=== PATIENT | female | born 1935 | race Caucasian/White ===

== ENCOUNTER → 2017-03-05 14:02 | Outpatient (CLI) | payer MEDICARE, OTHER ==
[2014-06-27 14:24] VITALS: BMI 25.4
[~2017-03-05 14:02] MED LIST: AMOXICILLIN875 MG PO; AUGMENTIN 875-11 TAB PO; COZAAR50 MG PO; HYDROCODON-ACE1 EAC7 PO; MOBIC7.5 MG PO; SYNTHROID75 MCG PO; ULTRAM50 MG PO
== END | disposition home or self-care (01) ==
LOC: D.US 02-26 13:00
DX: I65.23 Occlusion and stenosis of bilateral carotid arteries (principal)

== ENCOUNTER 2017-12-16 11:13 | Outpatient (CLI) | payer MEDICARE, OTHER ==
[~2017-12-16] VITALS: Ht 162.6 cm; Wt 70.0 kg
--- NOTE | ~2017-12-16 | HEMODYNAMI ---
PATIENT:MARY MONAHAN MEDICAL RECORD: [id number] : 37 LOCATION:[facility] ADMISSION DATE: 12/16/17 Generatedon:12/16/201713:31 Patient name: MARY MONAHAN Patient #: [id number] SSN: : [birth year] Date of study: 12/16/2017 Page: Of Hemodynamic Procedure Report Patient Data Patient Demographics Procedure consent was obtained First Name: MARY Gender: Female Last Name: TANIYA : 1935 Middle Initial: S Age: 82 year(s) Patient #: [id number] Race: Unknown Additional ID: [id number] Contact details [address]: [address] [place] [address] ROAD State: [facility] Zip code: [address] Past Medical History Allergies Allergen Reaction Date Comments Reported Other allergy 12/16/2017 MORPHINE, TETRACYCLINE Admission Admission Data Admission Date: 12/16/2017 Admission Time: 11:13 Height (in.): 64 Height (cm.): 162.56 Lab Results Lab Result Date: 12/16/2017 Lab Result Time: 0:00 Biochemistry Name Units Result Min Max BUN mg/dl 22 --(----)-* 7 18 Creatinine mg/dl 1 --(--*-)-- 0.6 1.3 CBC Name Units Result Min Max Hemoglobin g/dl 12 *-(----)-- 13.5 17.5 Procedure Procedure Types Cath Procedure Diagnostic Procedure C LH w/Coronaries Sedation Charges Moderate Sedation up to 15 minutes PCI Procedure Coronary Stent Coronary Stent Initial Procedure Description Procedure Date Procedure Date: 12/16/2017 Procedure Start Time: 13:05 Procedure End Time: 13:27 Procedure Staff Name Function Dalton Jesus MD Performing Physician Tricia Bates RT Monitor Lanre Haile RT Scrub Tahira White RN Nurse Evette Soliman RN Nurse Procedure Data Cath Procedure Fluoroscopy Diagnostic fluoroscopy Total fluoroscopy Time: 4.7 time: 4.7 min min Diagnostic fluoroscopy Total fluoroscopy dose: 623 dose: 623 mGy mGy Contrast Material Contrast Material Type Amount (ml) Isovue 300 122 Entry Location Entry Primary Successful Side Size Upsize Upsize Entry Closure Romero ccessful Closure Location (Fr) 1 (Fr) 2 (Fr) Remarks Device Remarks Radial Right 6 Fr Mechanical artery Short Compression Estimated blood loss: 10 ml Diagnostic catheters Device Type Used For End Catheter Placement DIAGNOSTIC [place] 110cm 5 Procedure Fr catheter ([id number]) Procedure Complications No complications Procedure Medications Medication Administration Route Dosage 0.9% NaCl I.V. 100 ml/hr Oxygen etCO2 Nasal cannula 2 l/min Lidocaine 2% added to field 20 Heparin Flush Bag added to field 2 bags (1000units/500ml NS) Versed I.V. 1 mg Fentanyl I.V. 50 mcg Heparin Bolus I.V. 7000 units Plavix P.O. 600 mg Fentanyl I.V. 50 mcg Hemodynamics Rest HGB: 12 (g/dl) Heart Rate: 60 (bpm) Pressure Samples Time Site Value (mmHg) Purpose Heart Use Rate(bpm) 13:09 LV 144/-3,13 Snapshot 58 Gradients Valve Time Site Site Mean SEP/DFP Peak To Heart Use 1 2 (mmHg) (sec/min) Peak Rate (mmHg) (bpm) Aortic 13:09 LV AO 63 Snapshots Pre Cath Intra NCS Post Cath Vital Signs Time Heart Resp SPO2 etCO2 NIBP (mmHg) Rhythm Pain Sedation Rate (ipm) (%) (mmHg) Status Level (bpm) 12:57:10 64 12 100 30.5 208/82(157) NSR 0 (11) 10(A) , No pain 13:01:45 58 16 97 35 175/68(136) NSR 0 (11) 10(A) , No pain 13:06:11 55 12 97 36 150/63(122) NSR 0 (11) 10(A) , No pain 13:10:29 56 14 97 30 138/63(111) NSR 0 (11) 10(A) , No pain 13:14:49 60 17 98 30 126/57(98) NSR 0 (11) 10(A) , No pain 13:19:09 58 14 97 32 142/57(111) NSR 0 (11) 9(A) , No pain 13:23:33 53 19 97 28.3 131/48(102) NSR 0 (11) 10(A) , No pain 13:28:47 60 17 98 26 152/73(123) NSR 0 (11) 10(A) , No pain Medications Time Medication Route Dose Verified Delivered Reason Notes Effectiveness by by 12:57:31 0.9% NaCl I.V. 100 Dalton Evette used for ml/hr Edin Soliman flipping machine operator 12:57:39 Oxygen etCO2 2 Dalton Evette used for Nasal l/min Edin Soliman procedure cannula RN 12:57:46 Lidocaine 2% added 20ml Dalton Dalton for local to vial Edin Jesus MD anesthetic field 12:57:54 Heparin Flush added 2 Dalton Dalton used for Bag to bags Edin Jesus MD procedure (1000units/500ml field NS) 13:06:57 Versed I.V. 1 mg Dalton Evette for sedation Edin Soliman RN 13:07:05 Fentanyl I.V. 50 Dalton Evette for sedation mcg Edin Soliman RN 13:19:20 Fentanyl I.V. 50 Dalton Evette for sedation mcg Edin Soliman RN 13:19:24 Heparin Bolus I.V. 7000 Dalton Evette for units Edin Soliman anticoagulation RN 13:25:41 Plavix P.O. 600 Dalton Evette for mg Edin Soliman antiplatelet RN therapy Procedure Log Time Note 12:35:32 Lanre Haile RT(R) sent for patient. Start room use. 12:46:00 Time tracking: Regular hours (M-F 7:00 - 5:00) 12:46:04 Plan of Care:Hemodynamics will remain stable., Cardiac rhythm will remain stable., Comfort level will be maintained., Respiratory function will remain adequate., Patient/ family verbilizes understanding of procedure., Procedure tolerated without complication., Recovers from procedure without complications.. 12:46:12 H&P Date Dictated: 12/10/2017 Within 30 days and on chart., H&P Addendum completed by physician on day of procedure. (MUST COMPLETE FOR ALL OUTPATIENTS). 12:46:32 Patient allergic to Other allergyMORPHINE, TETRACYCLINE 12:46:39 Patient Height : 64 inches 12:48:43 Patient received from Pre/Post Procedure Room to CCL 1 Alert and oriented. Tansferred to table in Supine position. 12:48:45 Warm blankets applied, and coy hugger turned on for patient comfort. 12:48:45 Correct patient and procedure confirmed by team. 12:48:47 Signed procedure consent form obtained from patient. 12:48:47 ECG and BP/O2 sat monitors applied to patient. 12:48:49 Diagnostic Cath status Elective 12:53:57 Vital chart was started 12:57:31 0.9% NaCl 100 ml/hr I.V. was administered by Evette Soliman RN; used for procedure; 12:57:39 Oxygen 2 l/min etCO2 Nasal cannula was administered by Evette Soliman RN; used for procedure; 12:57:46 Lidocaine 2% 20ml vial added to field was administered by Dalton Jesus MD; for local anesthetic; 12:57:54 Heparin Flush Bag (1000units/500ml NS) 2 bags added to field was administered by Dalton Jesus MD; used for procedure; 13:00:13 Baseline sample Acquired. 13:00:19 Rhythm: sinus bradycardia 13:00:20 Full Disclosure recording started 13:00:20 Pre-procedure instructions explained to patient. 13:00:21 Pre-op teaching completed and patient verbalized understanding. 13:00:22 Family in patients room. 13:00:24 Patient NPO since Midnight. 13:00:25 Is the patient allergic to Iodine/contrast media? No. 13:00:26 Is patient on blood thinner?No 13:00:28 Patient diabetic? No. 13:00:32 Previous problem with sedation/anesthesia? No ? 13:00:33 Snore? No 13:00:34 Sleep apnea? No 13:00:36 Deviated septum? No 13:00:37 Opens mouth fully? Yes 13:00:38 Sticks out tongue? Yes 13:00:39 Airway obstruction? No ? 13:00:43 Dentures? Yes PARTIAL IN 13:00:47 Modified Keshawn's test Ulnar < 7 seconds 13:00:49 Patient pain scale 0/10 ?. 13:00:54 IV patent on arrival in left forearm with 0.9% NaCl at [facility] 13:01:13 Lab Result : Creatinine 1 mg/dl 13::13 Lab Result : BUN 22 mg/dl 13::13 Lab Result : Hemoglobin 12 g/dl 13:01:16 Lab results completed and on chart. 13:01:19 Right Radial & Right Groin area was prepped with chlora-prep and draped in sterile fashion 13:01:20 Alarms reviewed by R. N. 13:01:20 Sharps counted by scrub and verified by R.N. 13:01:21 --------ALL STOP TIME OUT------ 13::22 Final Timeout: patient, procedure, and site verified with staff and physician. All members of the team are in agreement. 13:01:23 Right Radial & Right Groin site verified by team. 13:01:26 Physical assessment completed. ASA score P 2 - A patient with mild systemic disease as per Dalton Jesus MD. 13:01:28 Sedation plan: IV Moderate Sedation Medication:Versed, Fentanyl 13:02:14 Use device set Radial Dx or PCI 13:02:18 ACIST Syringe (95535) opened to sterile field. 13:02:19 Bag Decanter (2002S) opened to sterile field. 13:02:19 ACIST Manifold (44167) opened to sterile field. 13:02:20 ACIST Hand Control (72551) opened to sterile field. 13:02:21 Tegaderm 4 x 4 (1626W) opened to sterile field. 13:02:22 Medline Cath Pack ([id number]) opened to sterile field. 13:02:22 DIAGNOSTIC WIRE .035 260cm J wire (764396) opened to sterile field. 13:02:23 MBrace Wrist Support ([id number]) opened to sterile field. 13:02:23 SHEATH 6Fr Prelude Radial ([id number]) opened to sterile field. 13:04:03 Zero performed for pressure channel P1 13:04:32 Procedure started. 13:05:19 Local anesthetic to right radial artery with Lidocaine 2% by Dalton Jesus MD.INITIAL ACCESS ONLY 13:06:57 Versed 1 mg I.V. was administered by Evette Soliman RN; for sedation; 13:07:03 A 6 Fr Short sheath was inserted into the Right Radial artery 13:07:05 Fentanyl 50 mcg I.V. was administered by Evette Soliman RN; for sedation; 13:07:40 A DIAGNOSTIC [place] 110cm 5 Fr catheter (835199) was advanced over the wire and used for Procedure. 13:08:44 LV gram done using FIGUEROA 13:08:50 Injector settings: Ml/sec: 7, Volume: 15, 13:09:09 LV hemodynamics recorded. 13:09:19 EF : 60 % 13:11:49 LCA angiography performed. 13:12:29 RCA angiography performed. 13:15:00 Catheter exchanged over wire. 13:15:37 BMW 300cm [place] 2 J wire ([id number]) opened to sterile field. 13:15:38 INFLATOR Merit BasixCompak (KX5941) opened to sterile field. 13:15:38 TUBING High Pressure Extension Tubing (Lithera) ([id number]) opened to sterile field. 13:16:18 GUIDE 6FR AR 1.0 catheter ([id number]) opened to sterile field. 13:16:58 6 Fr AR 1 guide catheter was inserted over the wire 13:19:00 BMW 300 wire advanced. 13:19:20 Fentanyl 50 mcg I.V. was administered by Evette Soliman RN; for sedation; 13:19:24 Heparin Bolus 7000 units I.V. was administered by Evette Soliman RN; for anticoagulation; 13:20:35 Wire advanced across lesion. 13:22:57 Place stent Inflation Number: 1 A INTEGRITY OTW 3.5 X 26 stent ([id number]) was prepped and advanced across the Mid RCA. The stent was deployed at 16 JAQUELINE for 0:10 (min:sec). 13:24:08 Stent catheter was removed intact over wire. 13:24:09 Wire removed. 13:24:10 Guide catheter removed. 13:24:19 TR BAND Standard ([id number]) opened to sterile field. 13:25:05 Procedure ended.(Physican Out) 13:25:12 Sheath removed intact; hemostasis achieved with Mechanical Compression to the Right Radial artery. 13:25:41 Plavix 600 mg P.O. was administered by Evette Soliman RN; for antiplatelet therapy; 13:26:10 Fluoroscopy time 04.70 minutes. 13:26:16 Fluoroscopy dose: 623 mGy 13:26:16 Flurop Dose total: 623 13:26:19 Contrast amount:Isovue 300 122ml. 13:26:21 Sharps counted by scrub and verified by R.N. 13:26:23 TR band inflated with 14cc of air. 13:26:25 Post-procedure physical assessment completed. ASA score P 2 - A patient with mild systemic disease as per Dalton Jesus MD. 13:26:28 Post procedure rhythm: unchanged. 13:26:31 Estimated blood loss: 10 ml 13:26:32 Post procedure instruction explained to patient.Patient verbalizes understanding. 13:26:32 Patient needs reinforcement of post procedure teaching. 13:26:54 Procedure type changed to Cath procedure, Diagnostic procedure, LHC, LHC w/Coronaries, Sedation Charges, Moderate Sedation up to 15 minutes, PCI procedure, Coronary Stent, Coronary Stent Initial 13:27:45 Procedure and supply charges have been captured, reviewed, submitted and are correct. 13:27:47 Procedure Complication : No complications 13:27:49 Vital chart was stopped 13:27:49 See physician's report for complete and final results. 13:27:51 Report given to Pre/Post Procedure Room. 13:27:56 Patient transfered to Pre/Post Procedure Room with Bed. 13:27:58 Procedure ended. 13:27:58 Full Disclosure recording stopped 13:28:01 End room use (Document Last) Intervention Summary Intervention Notes Time ActionType Lesion and Equipment Action# Pressure Duration Attributes Used 13:22:57 Place stent Mid RCA INTEGRITY 1 16 00:10 OTW 3.5 X 26 stent ([id number]) Device Usage Item Name Manufacture Quantity Catalog Number Hospital Part Current M inimal Lot# / Charge Number Stock Stock Serial# Code ACIST Syringe Acist 1 79549 678961 767078 197500 2 0 (47274) [employer] Bag Decanter Microtek 1 2001S 776228 73297 597489 5 () Medical Inc. ACIST Manifold Acist 1 99502 602027 047549 380905 5 (52950) [employer] Inc ACIST Hand Acist 1 07551 036958 212243 297774 5 Control (35432) [employer] Inc Tegaderm 4 x 4 3M 1 1626W 081159 724658 163763 5 (1626W) Medline Cath Cardinal 1 [id number] 247317 83319 678202 5 [facility] ([id number]) DIAGNOSTIC WIRE [facility] 1 158402 342077 637892 846957 3 0 .035 260cm J wire (317032) MBrace Wrist Advanced 1 140-0250-00 189091 93048 529985 5 Support Vascular ([id number]) Dynamics SHEATH 6Fr Merit 1 [id number] 163229 881088 309671 5 Prelude Radial Medical ([id number]) DIAGNOSTIC Terumo 1 40-0943 733787 132322 808389 5 [place] 110cm 5 Fr catheter (722672) BMW 300cm [place] 1 [id number] 430887 532729 870282 5 [place] 2 J Vascular wire ([id number]) INFLATOR Merit Merit 1 UP9304 423371 414434 240393 1 5 BFKW Medical (OZ1229) TUBING High Merit 1 [id number] 038574 05822 990804 1 0 Pressure Medical Extension Tubing (Jesus) ([id number]) GUIDE 6FR AR Medtronic 1 [id number] 898197 96034 564368 1 1.0 catheter ([id number]) INTEGRITY OTW Medtronic 1 [id number] 552133 675980 7 [id number] 3.5 X 26 stent ([id number]) TR BAND Terumo 1 [id number] 502795 435496 272271 4 0 Standard ([id number]) Signature Audit [place] Stage Time Signature Unsigned Intra-Procedure 12/16/2017 Tricia Bates 1:31:40 PM RT(R) Signatures Monitor : Tricia Bates Signature : RT Date : Time : [facility] [address] [address]
[2017-12-16] MEDS ORDERED: HYDROCHLOROTH12.5 M1 PO (12:07)
[2017-12-16 12:15] VITALS: BP 189/76; Ht 162.6 cm; Wt 70.0 kg
[2017-12-16 12:34] LABS: BASOPHILS 0.6 % (0-2); HEMATOCRIT 35.4 % (36.0-48.0); IMMATURE GRANULOCYTES 0.2 % (0-5); LYMPHOCYTES 37.6 % (15-50); MCH 30.1 pg (26.0-34.0); MCHC 33.9 g/dL (31.0-37.0); MCV 88.7 fL (80.0-100.0); MEAN PLATELET VOLUME 10.5 fL (7.4-10.4); MONOCYTES 12.4 % (2-11); NEUTROPHILS 45.2 % (40-80); RBC 3.99 10x6/uL (4.00-5.40); RDW 13.1 % (11.5-14.5)
[2017-12-16 12:41] LABS: PLATELET COUNT 182 10x3/uL (130-400)
[2017-12-16 12:42] LABS: ANION GAP 14.6 mmol/L (8-16); CALCIUM 9.2 mg/dL (8.5-10.1); CARBON DIOXIDE 23.6 mmol/L (21.0-32.0)
[2017-12-16 12:43] LABS: POTASSIUM - SERUM 4.2 mmol/L (3.5-5.1)
[2017-12-16] MEDS ORDERED: PLAVIX75 MG PO (14:05)
== END 2017-12-16 17:10 | disposition home or self-care (01) ==
LOC: D.CATH 11:13
PROVIDERS: Internal Medicine Cardiovascular Disease
DX: I25.119 Atherosclerotic heart disease of native coronary artery with unspecified angina pectoris (principal); Z01.812 Encounter for preprocedural laboratory examination

== ENCOUNTER → 2018-02-25 12:54 | Outpatient (CLI) | payer MEDICARE, OTHER ==
[2017-12-16 12:15] VITALS: BMI 26.5
[~2018-02-25 12:54] MED LIST changes: +HYDROCHLOROTH12.5 M1 PO; +PLAVIX75 MG PO
== END | disposition home or self-care (01) ==
LOC: D.US 12:54
DX: I65.23 Occlusion and stenosis of bilateral carotid arteries (principal)

== ENCOUNTER → 2018-03-31 14:03 | Outpatient (CLI) | payer MEDICARE, OTHER ==
[2017-12-16 12:15] VITALS: BMI 26.5
== END | disposition home or self-care (01) ==
LOC: D.CT 14:03
DX: R19.00 Intra-abdominal and pelvic swelling, mass and lump, unspecified site (principal)

== ENCOUNTER → 2019-05-14 12:28 | Outpatient (CLI) | payer MEDICARE, OTHER ==
[2019-04-27 15:24] VITALS: BMI 23.6
== END | disposition home or self-care (01) ==
LOC: D.HCCECHO 12:28
PROVIDERS: ATTEND Internal Medicine Cardiovascular Disease
DX: I25.10 Atherosclerotic heart disease of native coronary artery without angina pectoris (principal)

== ENCOUNTER → 2019-05-31 08:40 | Outpatient (CLI) | payer MEDICARE, OTHER ==
[2019-04-27 15:24] VITALS: BMI 23.6
== END | disposition home or self-care (01) ==
LOC: D.US 04-27 09:00
PROVIDERS: ATTEND Internal Medicine Cardiovascular Disease
DX: I65.23 Occlusion and stenosis of bilateral carotid arteries (principal)

== ENCOUNTER → 2019-06-16 12:06 | Outpatient (CLI) | payer MEDICARE, OTHER ==
[2019-04-27 15:24] VITALS: BMI 23.6
== END | disposition home or self-care (01) ==
LOC: D.CT 11:30
PROVIDERS: ATTEND Family Medicine
DX: S09.90XA Unspecified injury of head, initial encounter (principal); S09.93XA Unspecified injury of face, initial encounter

== ENCOUNTER 2019-10-26 11:38 | Outpatient (CLI) | payer MEDICARE, OTHER ==
[~2019-10-26] VITALS: Ht 165.1 cm; Wt 68.2 kg
[2019-10-26 12:29] VITALS: BP 177/73; Ht 165.1 cm; Wt 68.2 kg
== END 2019-10-26 12:33 | disposition home or self-care (01) ==
LOC: D.OPS 11:38
PROVIDERS: ATTEND Family Medicine
DX: M81.0 Age-related osteoporosis without current pathological fracture (principal)

== ENCOUNTER → 2020-07-27 10:02 | Outpatient (CLI) | payer MEDICARE, OTHER ==
[2020-05-02 12:11] VITALS: BMI 24.1
== END | disposition home or self-care (01) ==
LOC: D.US 10:02 → D.HCCECHO 11:30
PROVIDERS: ATTEND Internal Medicine Cardiovascular Disease
DX: I65.22 Occlusion and stenosis of left carotid artery (principal)